=== PATIENT | female | born 1995 ===

== ENCOUNTER 2017-01-28 06:45 | Emergency (ER) | payer MEDICAID, OTHER ==
[2017-01-28 06:45] VITALS: BMI 29.5
[2017-01-28 06:53] VITALS: O2SAT 99
[2017-01-28 07:31] LABS: BASO % 0.4 % (0.0-2.0); EOS # 0.1 K/uL (0.0-0.7); EOS % 0.8 % (0.0-4.0); HEMATOCRIT 38.2 % (34.0-47.0); LYMPH # 1.8 K/uL (1.0-4.3); LYMPH % 22.5 % (20.0-40.0); MEAN CELL VOLUME 86.7 fL (81.0-99.0); MEAN CORPUSCULAR HEMOGLOBIN 28.9 pg (27.0-31.0); MEAN CORPUSCULAR HGB CONC 33.3 g/dL (33.0-37.0); MEAN PLATELET VOLUME 7.9 fL (7.2-11.7); MONO # 0.5 K/uL (0.0-0.8); MONO % 6.5 % (0.0-10.0); RED CELL DISTRIBUTION WIDTH 15.3 % (11.5-14.5); WHITE BLOOD COUNT 8.1 K/uL (4.8-10.8)
--- NOTE | 2017-01-28 07:44 | C.PDOC ---
History Of Present Illness 21 y/o female currently 12 weeks presents to ED with complaints of vaginal bleeding for 4 days worse today with left sided abdominal pain. Patient states she went to see PMD yesterday and had BETA levels checked and was told everything was normal. Patient denies back pain, vomiting, nausea, dizziness or any other complaints at this time. LMP 10/2016 Time Seen by Provider: 01/28/17 07:15 Chief Complaint (Nursing): Female Genitourinary History Per: Patient History/Exam Limitations: no limitations Onset/Duration Of Symptoms: Days Current Symptoms Are (Timing): Still Present Past Medical History Reviewed: Historical Data, Nursing Documentation, Vital Signs Vital Signs: Last Vital Signs Temp 98.7 F 01/28/17 10:06 Pulse 76 01/28/17 10:06 Resp 18 01/28/17 10:06 BP 94/60 L 01/28/17 10:06 Pulse Ox 99 01/28/17 10:23 - Medical History PMH: No Chronic Diseases Surgical History: No Surg Hx - [facility] Procedures DELIVERY OF PRODUCTS OF CONCEPTION, EXTERNAL APPROACH (03/19/16) MONITORING OF POC, CARDIAC RATE, STUNNER ANIMAL APPROACH (03/19/16) REPAIR PERINEUM SKIN, EXTERNAL APPROACH (03/19/16) Family History: States: No Known Family Hx - Social History Hx Alcohol Use: No Hx Substance Use: No - Immunization History Hx Tetanus Toxoid Vaccination: No Hx Influenza Vaccination: No Hx Pneumococcal Vaccination: No Review Of Systems Constitutional: Negative for: Fever, Chills Gastrointestinal: Positive for: Abdominal Pain. Negative for: Nausea, Vomiting Genitourinary: Positive for: Vaginal Bleeding Skin: Negative for: Rash Neurological: Negative for: Dizziness Physical Exam - Physical Exam Appears: Non-toxic, No Acute Distress Skin: Normal Color, Warm, Dry, No Rash Head: Atraumatic, Normacephalic Eye(s): bilateral: Normal Inspection Oral Mucosa: Moist Neck: Normal ROM, Supple Cardiovascular: Rhythm Regular Respiratory: Normal Breath Sounds, No Rales, No Rhonchi, No Wheezing Gastrointestinal/Abdominal: Soft, Tenderness (Suprapubic region mildly tender, mostly to LLQ), No Distention, No Guarding, No Rebound Back: Normal Inspection, No CVA Tenderness Extremity: Bilateral: Atraumatic, Normal Color And Temperature, Normal ROM Neurological/Psych: Oriented x3, Normal Speech Gait: Steady ED Course And Treatment - Laboratory Results Result Diagrams: 01/28/17 07:26 01/28/17 07:26 Lab Interpretation: No Acute Changes O2 Sat by Pulse Oximetry: 99 (RA) Pulse Ox Interpretation: Normal Medical Decision Making Medical Decision Making: Impression: A 21 year old female, , with 3 days of vaginal spotting and left pelvic pain starting today Differential Diagnosis included but are not limited to: Ectopic , UTI , Miscarriage Plan: -- Ultrasound Transvaginal -- Urinalysis -- Labs Prior Visits: Notes and results from previous visits were reviewed. Progress Notes: Labs reviewed, normal Hgb and electrolytes. BH[place] [address] [place] [address]. 10:06 Ultrasound reviewed by me. US shows gestational sac 8 weeks, no yolk sac or FHR. 10:22 Radiology report reviewed. Single intrauterine with estimated gestational age 8 weeks 3 days by gestational sac calculation and 8 weeks 0 days by crown-rump length calculation. Yolk sac is not visualized. heart motion was not detected during this examination. Recommend clinical correlation including serial quantitative beta HCGs, BUSINESS PERFORMANCE ADVISOR consultation, and short-term follow-up. 10:23 Page Lizbeth Waite her ob to notify. As per office he is unavailable at this time and will call back later 10:34 Patient is asking for discharge. Re-evaluation Time: 10:34 Patient asking for discharge and wants to know her results. Discussed results with patient and provide copy of lab and US reports. Patient expresses understanding. States this was an unwanted . Counseling was provided regarding the diagnosis and prognosis. All questions answered and there is agreement with the plan to discharge home with instructions. Patient stable for discharge. Return if symptoms persist or worsen. Dispo: Discharge home. Patient was recommended to f/u [facility] Dr Villavicencio in 1- 2 days. Return to ED if symptoms worsen. To have pelvic ultrasound, and Beta Quant. blood test repeated in 7 days Disposition Counseled Patient/Family Regarding: Diagnosis, Need For Followup - Disposition Referrals: Bandar Islas [Primary Care Provider] - Lizbeth Villavicencio MD [Staff Provider] - Disposition: HOME/ ROUTINE Disposition Time: 10:37 Condition: IMPROVED Additional Instructions[place] [address]. US report provided to you Follow up with [facility] Dr Villavicencio in 1-2 days. Return to ED if symptoms worsen. To have pelvic ultrasound, and Beta Quant blood test repeated in 7 days Instructions: Threatened Miscarriage (ED) Forms: [facility] (Macedonian) - POA Present On Arrival: None - Clinical Impression Clinical Impression: Threatened in early - PA / SUPERVISOR REMELT / Resident Statement MD/DO has reviewed & agrees with the documentation as recorded. - Scribe Statement The provider has reviewed the documentation as recorded by the Arthuribandrea Cannon All medical record entries made by the Dereck were at my direction and personally dictated by me. I have reviewed the chart and agree that the record accurately reflects my personal performance of the history, physical exam, medical decision making, and the department course for this patient. I have also personally directed, reviewed, and agree with the discharge instructions and disposition.
[2017-01-28 07:52] LABS: ALB/GLOB RATIO 1.4 (1.0-2.1); ALKALINE PHOSPHATASE 62 U/L (38-126); ALT/SGPT 35 U/L (9-52); AST/SGOT 26 U/L (14-36); BILIRUBIN,TOTAL 0.5 mg/dL (0.2-1.3); BLOOD UREA NITROGEN 11 mg/dL (7-17); CALCIUM 8.1 mg/dl (8.6-10.4); CARBON DIOXIDE 26 mmol/L (22-30); CHLORIDE 105 mmol/L (98-107); GFR AFRICAN-AMERICAN > 60; GLUCOSE,RANDOM 91 mg/dL (65-105); POTASSIUM 3.9 mmol/L (3.6-5.2); SODIUM 138 mmol/L (132-148); TOTAL PROTEIN 6.8 g/dL (6.3-8.3)
[2017-01-28 09:01] LABS: RBC URINE 53 /hpf (0-3); URINE BILIRUBIN NEGATIVE (NEGATIVE); URINE BLOOD 3+ (NEGATIVE); URINE COLOR Yellow (YELLOW); URINE GLUCOSE (UA) NORMAL (Normal); URINE KETONE NEGATIVE (NEGATIVE); URINE LEUKOCYTE ESTERASE TRACE Leu/uL (Negative); URINE PROTEIN NEGATIVE (NEGATIVE); URINE UROBILINOGEN NORMAL mg/dL (0.2-1.0); WBC URINE 13 /hpf (0-5)
[2017-01-28 10:07] VITALS: RESP 18
--- NOTE | 2017-01-28 10:19 | US ---
Indication: with left side pain and bleeding Comparison: None available. Technique: Transvaginal pelvic ultrasound Findings: The uterus measures approximately 10.6 x 5.1 x 6.8 cm. Anteverted. Cervix length measures approximately 3.8 cm. There is a single intrauterine fetus present. Yolk sac is not visualized. The gestational sac measures 3.3 cm and is compatible with a gestational age of 8 weeks 3 days. The crown-rump length measures 1.5 cm and is compatible with a gestational age of 8 weeks 0 days. heart motion was not detected during this examination. The right ovary measures 3.4 x 1.6 x 2.9 cm. The left ovary measures 3.3 x 1.7 x 2.5 cm. Blood flow was demonstrated to both ovaries. Impression: Single intrauterine with estimated gestational age 8 weeks 3 days by gestational sac calculation and 8 weeks 0 days by crown-rump length calculation. Yolk sac is not visualized. heart motion was not detected during this examination. Recommend clinical correlation including serial quantitative beta HCGs, CERAMIC ENGINEERING PROFESSOR consultation, and short-term follow-up.
[2017-01-28 11:34] VITALS: BP 102/65; PULSE 66; TEMP 97.6
== END 2017-01-28 11:33 | disposition home or self-care (01) ==
LOC: C.ER 06:45 → SUPCPDRO 06:45 → C.ER 11:33
DX: O20.0 Threatened abortion (principal); Z3A.12 12 weeks gestation of pregnancy